=== PATIENT | female | born 1955 | race Caucasian/White ===

== ENCOUNTER 2021-01-26 06:00 | Outpatient (RCR) | payer OTHER, SELFPAY | END 2021-02-07 23:59 | disposition home or self-care (01) | LOC: GOT 06:00 | PROVIDERS: PCP Family Medicine; Referring Provider Orthopaedic Surgery; Visit Provider Orthopaedic Surgery | DX: Z98.890 Other specified postprocedural states (principal) | CPT/HCPCS: 97110; 97140; 97166 ==

== ENCOUNTER 2021-02-08 06:00 | Outpatient (RCR) | payer OTHER, SELFPAY | END 2021-03-09 23:59 | disposition home or self-care (01) | LOC: GOT 06:00 | PROVIDERS: PCP Family Medicine; Referring Provider Orthopaedic Surgery; Visit Provider Orthopaedic Surgery | DX: Z98.890 Other specified postprocedural states (principal); M79.641 Pain in right hand | CPT/HCPCS: 97018; 97110; 97140 ==

== ENCOUNTER 2021-03-10 06:00 | Outpatient (RCR) | payer OTHER, SELFPAY | END 2021-04-09 23:59 | disposition home or self-care (01) | LOC: GOT 06:00 | PROVIDERS: PCP Family Medicine; Referring Provider Orthopaedic Surgery; Visit Provider Orthopaedic Surgery | DX: Z98.890 Other specified postprocedural states (principal) | CPT/HCPCS: 97018; 97110; 97140 ==

== ENCOUNTER → 2023-08-09 16:30 | Outpatient (BNVA) | payer MEDICARE, SELFPAY | PROVIDERS: PCP Family Medicine; Visit Provider Nurse Practitioner Women's Health | DX: N95.0 Postmenopausal bleeding (principal) | CPT/HCPCS: 88175 ==

== ENCOUNTER → 2023-08-27 12:31 | Outpatient (BNVA) | payer MEDICARE, SELFPAY | PROVIDERS: PCP Family Medicine; Visit Provider Nurse Practitioner Women's Health | DX: R10.2 Pelvic and perineal pain (principal); N95.0 Postmenopausal bleeding | CPT/HCPCS: 76830 ==

== ENCOUNTER 2023-10-30 12:07 | Outpatient (CLI) | payer MEDICARE, SELFPAY ==
--- NOTE | 2023-10-30 12:11 | USCV_ITS ---
Jade Marte Age: 68 Gender: F : 1955 Exam Date: 10/30/2023 12:21 Ordering Phys: Feliz Vargas MD Technologist: SHIRA Exam Location: [facility] [place] Indication: CHF BP: / HR: 0 Rhythm: Sinus Technical Quality: Adequate MEASUREMENTS (Male / Female) Normal Values 2D ECHO Aorta at Sinotubular Diameter 2.7 cm DOPPLER LVOT Peak Velocity 2.0 cm/s TV Peak Velocity 117.0 cm/s TR Peak Velocity 181.5 cm/s TR Peak Gradient 13.2 mmHg FINDINGS Left Ventricle Normal left ventricular size and systolic function, EF 60%no regional wall motion abnormalities. Right Ventricle The right ventricle is normal in size and function. Right Atrium The right atrium is normal in size. Left Atrium Normal chamber size Mitral Valve Thickened mitral valve. Aortic Valve Thickened aortic valve. Tricuspid Valve No gross abnormalities noted . Pulmonic Valve No gross abnormalities noted . Pericardium Normal pericardium without effusion. Aorta Normal aortic annulus size. IVC Normal inferior vena cava. CONCLUSIONS Normal left ventricular size and systolic function, EF 60%no regional wall motion abnormalities. Thickened mitral valve. Thickened aortic valve. Normal chamber sizes. No gross valvular abnormalities. There is no pericardial effusion. No similar previous studies are available for comparison Dr Nils Ulloa MD [facility] (Electronically Signed) Final Date: 03 November 2023 11:24 S
== END 2023-10-30 12:08 | disposition home or self-care (01) ==
LOC: RAD 12:07
PROVIDERS: PCP Family Medicine; Visit Provider Family Medicine
DX: I50.9 Heart failure, unspecified (principal); I08.0 Rheumatic disorders of both mitral and aortic valves
CPT/HCPCS: 93306

== ENCOUNTER → 2024-01-17 11:08 | Outpatient (BNVA) | payer MEDICARE, SELFPAY | PROVIDERS: PCP Family Medicine; Visit Provider Nurse Practitioner Family | DX: L57.0 Actinic keratosis (principal); L82.1 Other seborrheic keratosis; L73.8 Other specified follicular disorders; L72.0 Epidermal cyst; L91.8 Other hypertrophic disorders of the skin; D22.5 Melanocytic nevi of trunk | CPT/HCPCS: 17000; 99203 ==

== ENCOUNTER 2024-04-11 14:42 | Outpatient (CLI) | payer MEDICARE, SELFPAY ==
--- NOTE | 2024-04-11 14:49 | USCV_ITS ---
Estuardo Jade Age: 68 Gender: F : 1955 Exam Date: 04/11/2024 15:09 Ordering Phys: Pierre Vargas MD Technologist: DEANGELO Exam Location: [facility] – [place] Indication: LE Swelling Risk Factors: Previous Vascular Surgery: RIGHT LEFT BP: 138.0 / 75.00 BP: 155.0/ 85.00 0 0 Waveform Velocity (cm/s) Velocity (cm/s) Waveform Triphasic 128.1 Iliac Prox 97.5 Triphasic Triphasic 115.5 Iliac Mid 103.2 Triphasic Triphasic Iliac Distal Triphasic 125.0 183.9 Triphasic 146.0 CATALYST RECOVERY OPERATOR 106.0 Triphasic Triphasic 118.0 SFA Prox 170.0 Triphasic Triphasic 151.0 SFA Mid 154.0 Triphasic Triphasic 91.0 SFA Dist 105.0 Triphasic Triphasic 84.0 POP 110.0 Triphasic Triphasic 102.0 MERCURY CELL CLEANER 103.0 Triphasic Triphasic 87.0 DPA 99.0 Triphasic 1.0 STAR 0.9 FINDINGS Resting STAR 1.0 on the right and 0.9 on the left Triphasic Doppler waveforms bilaterally Normal Doppler flow velocities bilaterally CONCLUSIONS Normal resting ABIs bilaterally Normal arterial Doppler waveforms and velocities bilaterally No evidence of any significant arterial obstruction, based on the above findings. Dr Nils Ulloa MD [facility] (Electronically Signed) Final Date: 30 April 2024 23:49 S
== END 2024-04-11 14:43 | disposition home or self-care (01) ==
LOC: RAD 14:44
PROVIDERS: PCP Family Medicine; Visit Provider Family Medicine
DX: R22.43 Localized swelling, mass and lump, lower limb, bilateral (principal); R09.89 Other specified symptoms and signs involving the circulatory and respiratory systems
CPT/HCPCS: 93925

== ENCOUNTER → 2024-07-09 15:42 | Outpatient (BNVA) | payer MEDICARE, SELFPAY | PROVIDERS: PCP Family Medicine; Visit Provider Nurse Practitioner Family | DX: D48.5 Neoplasm of uncertain behavior of skin (principal); L82.1 Other seborrheic keratosis; L73.8 Other specified follicular disorders; L91.8 Other hypertrophic disorders of the skin; L81.4 Other melanin hyperpigmentation | CPT/HCPCS: 11102; 99213 ==

== ENCOUNTER 2024-07-31 10:26 | Outpatient (CLI) | payer MEDICARE, SELFPAY ==
--- NOTE | 2024-07-31 10:30 | MM_ITS ---
WS: [id number] VIEWS: CC and LEFT MLO and LEFT MLO tomograms were obtained. Conventional craniocaudal view of the LE FT breast was also included.. 3D digital tomosynthesis is also included in this exam. Comparison made with prior exam of previous exam performed 10/15/2017 and 06/24/2024.. Findings: There are scattered areas of fibroglandular density. FINDINGS previously questioned nodule in the lateral aspect of the LEFT breast at posterior depth is not demonstrated on the compression spot images with tomography or the conventional LEFT CC image. Th is may have represented a summation shadow. No suspicious mass, tumor calcification or architectural distortion is seen in the LEFT breast. MM/MM diag LT tomosynthesis [id number] Impression: BI-RADS: 2 - Benign FOLLOW-UP: 1 Year Follow-up This mammogram was also analyzed by the Computer Aided Detection System R2 Imag e Medical Attendant.
== END 2024-07-31 10:27 | disposition home or self-care (01) ==
LOC: RAD 10:28
PROVIDERS: PCP Family Medicine; Visit Provider Family Medicine
DX: R92.8 Other abnormal and inconclusive findings on diagnostic imaging of breast (principal); R92.323 Mammographic fibroglandular density, bilateral breasts
CPT/HCPCS: 77061; G0279

== ENCOUNTER 2025-07-27 12:44 | Outpatient (CLI) | payer MEDICARE, SELFPAY ==
--- NOTE | 2025-07-27 12:40 | MM_ITS ---
WS: [id number] BILATERAL 3D TOMOSYNTHESIS DIGITAL SCREENING MAMMOGRAPHY WITH CAD CLINICAL INFORMATION: Z12.39 - Encounter for other screening for malignant neop... HISTORY: Screening mammogram. No current complaints. COMPARISON: 2023 TECHNIQUE: Bilateral CC and MLO views. FINDINGS: Scattered fibroglandular densities bilaterally. No suspicious focal mass, asymmetry, calcifications, or architectural distortion. No evidence of malignancy. Stable intramammary lymph node RIGHT breast. Incidental punctate calcifications LEFT greater than RIGHT breast MM/MM scr tomosynthesis [id number] IMPRESSION: DENSITY: There are scattered areas of fibroglandular density. BI-RADS: 2 - Benign. FOLLOW UP: 1 Year Follow-up Recommend return to annual screening mammography.
== END 2025-07-27 12:45 | disposition home or self-care (01) ==
LOC: RAD 12:45
PROVIDERS: PCP Family Medicine; Visit Provider Nurse Practitioner Women's Health
DX: Z12.31 Encounter for screening mammogram for malignant neoplasm of breast (principal); R92.323 Mammographic fibroglandular density, bilateral breasts; R92.1 Mammographic calcification found on diagnostic imaging of breast; N64.89 Other specified disorders of breast
CPT/HCPCS: 77063; 77067

== ENCOUNTER → 2025-08-17 09:17 | Outpatient (BNVA) | payer MEDICARE, SELFPAY | PROVIDERS: PCP Family Medicine; Visit Provider Specialist | DX: M19.011 Primary osteoarthritis, right shoulder (principal); M89.8X2 Other specified disorders of bone, upper arm; G89.29 Other chronic pain | CPT/HCPCS: 73030; 73060; 99204 ==